=== PATIENT | male | born 1965 | race American Indian/Alaskan Native ===

== ENCOUNTER 2018-02-11 16:49 | Emergency (ER) | payer OTHER ==
[2018-02-11 17:04] VITALS: RESP 18; TEMP 98.2; BMI 43.3
[2018-02-11] MEDS ORDERED: Oxycodone/Acetaminophen 5/325 mg Tab PO STA ×2 (17:16→17:38)
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
[2018-02-11] MEDS ORDERED: HYDROmorphone 1 mg/ml ISec IM STA (19:47)
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
[2018-02-12 00:02] VITALS: BP 110/83; PULSE 65; O2SAT 98
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
== END 2018-02-11 22:30 | disposition home or self-care (01) ==
LOC: ED 16:49
DX: S39.012A Strain of muscle, fascia and tendon of lower back, initial encounter (principal); S13.9XXA Sprain of joints and ligaments of unspecified parts of neck, initial encounter; S80.02XA Contusion of left knee, initial encounter; V43.52XA Car driver injured in collision with other type car in traffic accident, initial encounter; Y92.410 Unspecified street and highway as the place of occurrence of the external cause
CPT/HCPCS: 72100; 72125; 72131; 73110; 73560; 96372; 99284; J1170; J1885

== ENCOUNTER 2018-04-15 09:57 | Emergency (ER) | payer BC, OTHER ==
[2018-04-15 09:58] VITALS: BMI 39.9
[2018-04-15 10:10] VITALS: RESP 18; TEMP 98.3
--- NOTE | 2018-04-15 10:21 | ED PDOC ---
Arrival/HPI - General Chief Complaint: Trauma Time Seen by Provider: 04/15/18 10:17 Historian: Patient - History of Present Illness Narrative History of Present Illness (Text): 04/15/18 11:00 52 year old male, whose PMH includes hypertension, who presents to the emergency department s/p mechanical fall at work injuring his head and right arm. Patient reports he slipped and fell hitting his head on the cement ground and extending right arm back causing him to land on it. Patient denies LOC, changes in vision, nausea, vomiting, fever, or other traumas. Time/Duration: Prior to Arrival Symptom Onset: Sudden Symptom Course: Unchanged Context: Work, Slipped Past Medical History - Provider Review Nursing Documentation Reviewed: Yes - Past History Past History: No Previous - Infectious Disease Hx of Infectious Diseases: None - Tetanus Immunization Tetanus Immunization: Unknown - Cardiac Hx Cardiac Disorders: Yes Hx Hypertension: Yes - Pulmonary Hx Respiratory Disorders: No - Neurological Hx Neurological Disorder: No - HEENT Hx HEENT Disorder: No - Renal Hx Renal Disorder: No - Endocrine/Metabolic Hx Endocrine Disorders: No - Hematological/Oncological Hx Blood Disorders: No - Integumentary Hx Dermatological Disorder: No - Musculoskeletal/Rheumatological Hx Musculoskeletal Disorders: Yes Hx Gout: Yes - Gastrointestinal Hx Gastrointestinal Disorders: No - Genitourinary/Gynecological Hx Genitourinary Disorders: No - Psychiatric Hx Psychophysiologic Disorder: No Hx Substance Use: No - Surgical History Hx Gastric Bypass Surgery: Yes (2011) Hx Orthopedic Surgery: Yes (right knee 07/2014) - Anesthesia Hx Anesthesia: Yes Hx Anesthesia Reactions: No Hx Malignant Hyperthermia: No - Suicidal Assessment Feels Threatened In Home Enviroment: No Family/Social History - Physician Review Nursing Documentation Reviewed: Yes Family/Social History: Unknown Family HX Smoking Status: Never Smoked Hx Alcohol Use: Yes Hx Substance Use: No Hx Substance Use Treatment: No Allergies/Home Meds Allergies/Adverse Reactions: Allergies No Known Allergies Allergy (Verified 04/15/18 10:05) Home Medications: Home Meds Medication Instructions Recorded Confirmed Lisinopril/Hydrochlorothiazide 1 tab PO DAILY 11/23/15 04/15/18 [Lisinopril-Hydrochlorothiazide 25 mg-20 mg] Review of Systems - Physician Review All systems were reviewed & negative as marked: Yes - Review of Systems Constitutional: absent: Fevers Respiratory: absent: SOB Cardiovascular: absent: Chest Pain Musculoskeletal: Other (head trauma and right arm pain ) Physical Exam Vital Signs Reviewed: Yes Vital Signs Temp Pulse Resp BP Pulse Ox 04/15/18 12:34 98 04/15/18 12:29 64 18 112/70 98 04/15/18 10:10 98.3 F 63 18 107/67 100 Temperature: Afebrile Blood Pressure: Normal Pulse: Regular Respiratory Rate: Normal Appearance: Positive for: Well-Appearing, Non-Toxic, Comfortable Pain Distress: None Mental Status: Positive for: Alert and Oriented X 3 - Systems Exam Head: Present: Atraumatic, Normocephalic. No: Abrasion, Laceration Pupils: Present: PERRL Extroacular Muscles: Present: EOMI Conjunctiva: Present: Normal Neck: Present: Normal Range of Motion. No: MIDLINE TENDERNESS, Paraspinal Tenderness Respiratory/Chest: Present: Clear to Auscultation, Good Air Exchange. No: Respiratory Distress, Accessory Muscle Use, Wheezes, Decreased Breath Sounds, Rales, Retracting, Rhonchi Cardiovascular: Present: Regular Rate and Rhythm, Normal S1, S2. No: Murmurs Abdomen: Present: Normal Bowel Sounds. No: Tenderness, Distention, Peritoneal Signs, Rebound, Guarding Upper Extremity: Present: Normal Inspection, Normal ROM, NORMAL PULSES, Neurovascularly Intact, Capillary Refill < 2s, Other (4 out 5 strength ). No: Cyanosis, Edema, Deformity Lower Extremity: Present: Normal Inspection, NORMAL PULSES, Normal ROM, Neurovascularly Intact, Capillary Refill < 2 s. No: Edema, Cyanosis, Tenderness , Swelling, Erythema, Deformity Neurological: Present: GCS=15, CN II-XII Intact, Speech Normal Skin: Present: Warm, Dry, Normal Color. No: Rashes Psychiatric: Present: Alert, Oriented x 3, Normal Insight, Normal Concentration Medical Decision Making ED Course and Treatment: 04/15/18 Impression: 52 year old male with 4 out 5 strength in right upper extremity motor complaining of right arm pain s/p mechanical fall. Plan: -- CT head -- Right forearm x-ray -- RIght wrist x-ray -- Reassess and disposition Progress Notes: 04/15/18 11:00 CT head: Creator : Abner Dietrich MD FINDINGS: HEMORRHAGE: No intracranial hemorrhage. BRAIN: No mass effect or edema. No atrophy or chronic microvascular ischemic changes. VENTRICLES: Unremarkable. No hydrocephalus. CALVARIUM: Unremarkable. PARANASAL SINUSES: Unremarkable as visualized. No significant inflammatory changes. MASTOID AIR CELLS: Unremarkable as visualized. No inflammatory changes. OTHER FINDINGS: None. IMPRESSION: Normal CT of the Head. No acute intracranial hemorrhage. 04/15/18 12:00 Right Wrist x-ray: Creator : Abner Dietrich MD FINDINGS: BONES: Normal. No fracture. JOINTS: Normal. No dislocation. SOFT TISSUES: Normal. OTHER FINDINGS: None. IMPRESSION: Normal right wrist radiographs. 04/15/18 12:00 Right forearm x-ray: Creator : Abner Dietrich MD FINDINGS: BONES: No fracture or destructive lesion. JOINT SPACES: Unremarkable. OTHER FINDINGS: None. IMPRESSION: Unremarkable radiographs of the right forearm. F/U with PMD in next few days VSS and ambulated well out of the ED - RAD Interpretation Narrative RAD Interpretations (Text): 04/15/18 12:22 PROCEDURE: Right Wrist Radiographs. HISTORY: fall COMPARISON: None. FINDINGS: BONES: Normal. No fracture. JOINTS: Normal. No dislocation. SOFT TISSUES: Normal. OTHER FINDINGS: None. IMPRESSION: Normal right wrist radiographs. Radiology Orders: 04/15/18 10:17 FOREARM RT FALL PROTOCOL [RAD] Stat 04/15/18 10:18 HEAD W/O CONTRAST [CT] Stat 04/15/18 10:20 WRIST, RIGHT 3 VIEWS [RAD] Stat Hematology Nurse Educator: Radiologist - Scribe Statement The provider has reviewed the documentation as recorded by the Scribe Dorie Mark Provider Scribe Attestation: All medical record entries made by the Scribe were at my direction and personally dictated by me. I have reviewed the chart and agree that the record accurately reflects my personal performance of the history, physical exam, medical decision making, and the department course for this patient. I have also personally directed, reviewed, and agree with the discharge instructions and disposition. Disposition/Present on Arrival - Present on Arrival Any Indicators Present on Arrival: Yes History of DVT/PE: No History of Uncontrolled Diabetes: No Urinary Catheter: No History of Decub. Ulcer: No History Surgical Site Infection Following: None - Disposition Have Diagnosis and Disposition been Completed?: Yes Diagnosis: Right wrist sprain Disposition: HOME/ ROUTINE Disposition Time: 12:23 Patient Plan: Discharge Condition: GOOD Discharge Instructions (ExitCare): Wrist Sprain (DC) Additional Instructions: KARYN HANKINS, thank you for letting us take care of you today. Your provider was Addi Diaz DO and CALVIN Alonso and you were treated for RIGHT WRIST SPRAIN. The emergency medical care you received today was directed at your acute symptoms. If you were prescribed any medication, please fill it and take as directed. It may take several days for your symptoms to resolve. Return to the Emergency Department if your symptoms worsen, do not improve, or if you have any other problems. PLEASE ICE AND REST YOUR WRIST OVER THE NEXT FEW DAYS; TAKE IBUPROFEN LIKE ADVIL OR MOTRIN EVERY 6 HOURS NEEDED TO REDUCE PAIN AND SWELLING Please contact your doctor or call one of the physicians/clinics you have been referred to that are listed on the Patient Visit Information form that is included in your discharge packet. Bring any paperwork you were given at discharge with you along with any medications you are taking to your follow up visit. Our treatment cannot replace ongoing medical care by a primary care provider outside of the emergency department. Thank you for allowing the [facility] team to be part of your care today. If you had an X-Ray or CT scan: A Radiologist will review the ED reading if any change in treatment is needed we will contact you. Prescriptions: Ibuprofen [Motrin Tab] 600 mg PO Q6 PRN 5 Days #20 tab PRN Reason: pain/fever Forms: [employer] (Cuban), WORK NOTE
--- NOTE | 2018-04-15 10:53 | CT ---
PROCEDURE: CT HEAD WITHOUT CONTRAST. HISTORY: Fall with head trauma COMPARISON: None available. TECHNIQUE: Axial computed tomography images were obtained through the head/brain without intravenous contrast. Radiation dose: Total exam DLP = 1006.64 mGy-cm. This CT exam was performed using one or more of the following dose reduction techniques: Automated exposure control, adjustment of the mA and/or kV according to patient size, and/or use of iterative reconstruction technique. FINDINGS: HEMORRHAGE: No intracranial hemorrhage. BRAIN: No mass effect or edema. No atrophy or chronic microvascular ischemic changes. VENTRICLES: Unremarkable. No hydrocephalus. CALVARIUM: Unremarkable. PARANASAL SINUSES: Unremarkable as visualized. No significant inflammatory changes. MASTOID AIR CELLS: Unremarkable as visualized. No inflammatory changes. OTHER FINDINGS: None. IMPRESSION: Normal CT of the Head. No acute intracranial hemorrhage.
--- NOTE | 2018-04-15 11:59 | RAD ---
PROCEDURE: Radiographs of the Right Forearm HISTORY: Fall at work on slipper surface COMPARISON: None available. TECHNIQUE: Frontal and lateral views obtained. FINDINGS: BONES: No fracture or destructive lesion. JOINT SPACES: Unremarkable. OTHER FINDINGS: None. IMPRESSION: Unremarkable radiographs of the right forearm.
--- NOTE | 2018-04-15 12:00 | RAD ---
PROCEDURE: Right Wrist Radiographs. HISTORY: fall COMPARISON: None. FINDINGS: BONES: Normal. No fracture. JOINTS: Normal. No dislocation. SOFT TISSUES: Normal. OTHER FINDINGS: None. IMPRESSION: Normal right wrist radiographs.
[2018-04-15 12:30] VITALS: BP 112/70; PULSE 64; O2SAT 98
== END 2018-04-15 12:34 | disposition home or self-care (01) ==
LOC: ED 09:57
DX: S63.501A Unspecified sprain of right wrist, initial encounter (principal); W01.0XXA Fall on same level from slipping, tripping and stumbling without subsequent striking against object, initial encounter; I10 Essential (primary) hypertension